=== PATIENT | female | born 1940 | race Caucasian/White ===

== ENCOUNTER → 2018-08-25 12:51 | Outpatient (CLI) | payer MEDICARE, BC, SELFPAY ==
--- NOTE | 2018-08-25 | DI.MRI.S_ITS ---
PROCEDURE: MR LUMBAR SPINE WO CON INDICATIONS: CHRONIC LEFT SIDED LOW BACK PAIN TECHNIQUE: Noncontrast sagittal T1 spin echo and T2 fast echo, sagittal STIR, axial T1 and T2 fast spin echo through the lumbar spine. In cases with scoliosis, additional coronal T2 fast spin echo may be performed. COMPARISON: [facility], CR, XR LUMBAR SPINE 2 OR 3 VIEWS, 08/20/2018, 11:00. FINDINGS: Image quality: Excellent. Alignment and Curvature: 5 lumbar diverticulitis are present by plain film. There is loss of normal lumbar lordosis. There is mild, grade 1 retrolisthesis of T12 on L1, L1 on L2, and L2 on L3. Bone Marrow: Marrow is of normal overall signal. No acute vertebral body compression fractures. There is mild reactive signal within the endplates adjacent to the T12-L1 number L1-L2, L3-L4, L4-L5, and L5-S1 intervertebral discs. Spinal Cord: Conus medullaris terminates at the upper L2 level. Visualized cord demonstrates normal signal and size. Paraspinous Soft Tissues: No paravertebral masses. L1-L2: Moderate disc height loss and desiccation. Mild diffuse disc bulge. Mild bilateral facet and ligamentum flavum hypertrophy. Mild canal stenosis. Mild left foraminal stenosis. No right foraminal stenosis. L2-L3: Mild disc height loss and desiccation. Mild diffuse disc bulge with superimposed broad-based left far lateral protrusion. Mild bilateral facet and ligamentum flavum hypertrophy. Mild epidural lipomatosis. Mild canal stenosis. Moderate left and mild right foraminal stenosis. L3-L4: Severe disc height loss and desiccation. Moderate diffuse disc bulge with superimposed broad-based right far lateral protrusion. Moderate facet and ligamentum flavum hypertrophy. Mild epidural lipomatosis. Severe canal stenosis. Mild foraminal stenosis bilaterally. L4-L5: Severe disc height loss and desiccation. Mild diffuse disc bulge. Mild bilateral facet and ligamentum flavum hypertrophy. Mild epidural lipomatosis. Moderate to severe canal stenosis. Moderate right and mild left foraminal stenosis. L5-S1: Moderate disc height loss and desiccation. Mild diffuse disc bulge. Mild bilateral facet hypertrophy. Mild canal stenosis. Severe bilateral foraminal stenosis with bilateral intraforaminal L5 nerve root flattening. IMPRESSION: 1.Multilevel degenerative disc and facet disease, as well as ligamentum flavum hypertrophy and epidural lipomatosis. 2. Multilevel canal stenoses, worst at L3-L4 and L4-L5 as described above. 3. Multilevel foraminal stenoses, worst at L5-S1 bilaterally, where there is associated intraforaminal L5 nerve root flattening. Recommend correlation with clinical symptoms to ascertain relevance of this finding. Dictated by: Clarisse Thomas M.D. on 08/25/2018 at 13:33 Approved by: Clarisse Thomas M.D. on 08/25/2018 at 13:37
== END ==
PROVIDERS: Family Provider Internal Medicine; PCP Internal Medicine; Visit Provider Orthopaedic Surgery
DX: M54.5 Low back pain (principal); M51.36 Other intervertebral disc degeneration, lumbar region; M51.37 Other intervertebral disc degeneration, lumbosacral region; M48.061 Spinal stenosis, lumbar region without neurogenic claudication; M48.07 Spinal stenosis, lumbosacral region; E88.2 Lipomatosis, not elsewhere classified; G89.29 Other chronic pain
CPT/HCPCS: 72148

== ENCOUNTER 2019-04-13 09:48 | Inpatient (IN) | payer MEDICARE, BC, SELFPAY ==
[2019-03-30 08:16] VITALS: BMI 27.1
[2019-04-13] VITALS (16 sets, daily range): BP systolic 106–174; BP diastolic 45–88; PULSE 55–76; RESP 12–24; TEMP 35.6–36.6; O2SAT 92–100; BMI 27.3
--- NOTE | 2019-04-13 | DI.RAD.S_ITS ---
PROCEDURE: XR LUMBAR SPINE 2-3V INDICATIONS: L4-5 LEFT HEMILAMINECTOMY, L5-S1 TLIF WITH POSTERIOR INSTRU TECHNIQUE: 2 views of the lumbar spine were acquired. COMPARISON: None. FINDINGS: 2 spot fluoroscopic images demonstrating L5-S1 posterior spinal fixation hardware and interbody cage graft. There is expected intraoperative alignment. Dictated by: Raz Bryan M.D. on 04/13/2019 at 15:07 Approved by: Raz Bryan M.D. on 04/13/2019 at 15:08
[2019-04-13] MEDS: LACTATED RINGERS 1,000 ML 42 ML IV ×2 (10:40→13:58)
--- NOTE | 2019-04-13 11:46 | PM.PREOP ---
Pre-operative Note Interval Note History & Physical reviewed/Exam performed by Physician: Yes Changes to H&P: No
[2019-04-13] MEDS: CEFAZOLIN 2 GM/100 ML FROZ.PIGGY IV ×2 (12:05→20:02)
--- NOTE | 2019-04-13 12:36 | SUR.OPER ---
Prone on spine table, head in foam head support, padded chest and pelvic supports, gel pad at knees, lower legs supported by pillows; nipples, genitalia and toes free of pressure, arms secured on foam padded arm boards at <90 degrees abduction. Tape over blanket at thigh secured to table.
[2019-04-13] MEDS: BUPIVACAINE 0.25% W/ EPI 30 ML VIAL INJ (12:39)
[2019-04-13] MEDS: BUPIVACAINE LIPOSOME 266 MG/20 ML VIAL INJ (12:40)
--- NOTE | 2019-04-13 14:43 | PM.OP.1 ---
Operative Date/Time/Diagnoses Date of procedure: 04/13/19 Time of procedure: 12:43 Pre-op diagnosis: 1. L4-5, L5-S1 spinal stenosis 2. L4-5, L5-S1 spondylosis with radiculopathy 3. L5-S1 disc herniation with radiculopathy Post-op diagnosis: same Procedure & Clinicians Procedure: 1. L5-S1 Postero-lateral and posterior interbody fusion 2. L5-S1 interbody cage placement. 3. L5-S1 decompressive laminectomy with bilateral facetecomies 4. L5-S1 Posterior non-segmental instrumentation 5. L4-5 hemilaminectomy 6. [place] of bone marrow from iliac crest 7. Utilization of microsurgical technique and operating microscope Same procedure as scheduled: Yes Indications: Patient has been having chronic back pain and worsening lumbar radiculopathy. Patient failed multiple conservative management with worsening pain weakness and numbness in her lower extremity. Patient has been having difficulty performing activity of daily living. After discussing risks benefits of treatment options, patient elected proceed with surgery. Surgeon: Dallas Lujan Atl[employer]ian Administrator: Angelika Patel Click Yes if Unassisted: No Anesthesia Type: General Operative Notes Closure Type: primary Specimen(s): none sent Prosthetic devices, grafts, tissues, transplants, or devices: Globus revolve, Rise cage Estimated Blood Loss (mL): 50 Blood products transfused: none Procedure in detail: Patient was seen in the preoperative area. Risks and benefits of the surgery was discussed with the patient. Informed consent was obtained from the patient and placed in the chart. Surgical site was marked. Patient was taken to the operative room. General anesthesia was administered. Prophylactic antibiotic was given to the patient less than 30 min before the incision was made. Patient was placed into a prone position on the Misha table. Patient's back was then prepped and draped in the sterile fashion. Time-out was performed at this time. Using AP and lateral C-arm imaging the interval between L4-5 L5-S1 was identified and marked on patient's back. A 2 inch incision 2 in from midline was made on the left side first. The fascia was incised in line with skin incision. Globus MARS retractors was placed inside the incision and docked onto the L5 lamina. Using microsurgical technique and operating microscope, a L5-S1 laminectomy and L5-S1 facetectomy was performed using a Kerrison rongeur. The disc space at L5-S1 was identified. And a total diskectomy was performed at L5-S1 level. The endplates were decorticated using a rasp and shaver. The total diskectomy and decortication was performed at L5-S1 level in order to to accomplish a L5-S1 fusion. The local bone from the laminectomy and facetectomy was saved for local bone grafting. After the total diskectomy and decortication was completed, Bio4 bone graft material was combined with local bone that was harvested earlier. At this time, a separate skin is incision was made over the iliac crest. A Jamshidi needle was inserted into the iliac crest through a separate skin incision. 5 cc of bone marrow aspiration was obtained through the separate skin incision using a Jamshidi needle from the iliac crest. The bone marrow aspiration was combined with local bone and the BIO4 bone grafting material. The bone grafting material was placed into the L5-S1 interbody space along with a expandable cage. The cage was expanded to its maximum height using the torque limiting screwdriver. At this time the MARS retractor was redirected over the L4 lamina. Using microsurgical technique and operating microscope, a L4-5 heminectomy was performed using the Kerrison rongeur. The ligamentum flavum was also resected at the side of the hemilaminectomy for further decompression of the epidural space. At this time a mirror image incision was made on the right side. The fascia was incised in line with the skin incision. Globus MARS retractor was inserted and docked onto the L5-S1 posterolateral gutter. Using the power drill, posterior-lateral decortication was performed at L5-S1 level until bleeding cortical bone was identified. The remaining bone grafting material was placed into the L5-S1 posterior lateral gutter he order to accomplish posterolateral fusion at the L5-S1 level. Using the double C-arm technique, pedicle screws were placed into the L5 and S1 pedicles bilaterally. This was done by placing the Jamshidi needle into the pedicles, then placing the guidewires over the Jamshidi needle, and finally placing the cannulated screws over the guidewires bilaterally. After the pedicle screws were placed, 2 titanium rods was locked into the heads of the pedicle screws using locking caps and torque limiting screwdriver. After all the hardware was placed, and confirmed with AP and lateral C-arm imaging, the wound was then irrigated with sterile normal saline and packed with Ray-Hector gauze for 3 min to accomplish hemostasis. After the gauze was removed the deep fascia was closed with #1 Vicryl suture. The subcutaneous layer was closed with 2-0 Vicryl. The skin was closed with skin maximiliano. Patient tolerated the procedure well. There were no complications. Complications: none Condition: stable Disposition: PACU Plan for aftercare: [facility]
--- NOTE | 2019-04-13 14:48 | P.OP_ITS ---
Operative Date/Time/Diagnoses Date of procedure: 04/13/19 Time of procedure: 12:43 Pre-op diagnosis: 1. L4-5, L5-S1 spinal stenosis 2. L4-5, L5-S1 spondylosis with radiculopathy 3. L5-S1 disc herniation with radiculopathy Post-op diagnosis: same Procedure & Clinicians Procedure: 1. L5-S1 Postero-lateral and posterior interbody fusion 2. L5-S1 interbody cage placement. 3. L5-S1 decompressive laminectomy with bilateral facetecomies 4. L5-S1 Posterior non-segmental instrumentation 5. L4-5 hemilaminectomy 6. [place] of bone marrow from iliac crest 7. Utilization of microsurgical technique and operating microscope Same procedure as scheduled: Yes Indications: Patient has been having chronic back pain and worsening lumbar radiculopathy. Patient failed multiple conservative management with worsening pain weakness and numbness in her lower extremity. Patient has been having difficulty performing activity of daily living. After discussing risks benefits of treatment options, patient elected proceed with surgery. Surgeon: Dallas Lujan Superintendent Maintenance: Angelika Patel Click Yes if Unassisted: No Anesthesia Type: General Operative Notes Closure Type: primary Specimen(s): none sent Prosthetic devices, grafts, tissues, transplants, or devices: Globus revolve, Rise cage Estimated Blood Loss (mL): 50 Blood products transfused: none Procedure in detail: Patient was seen in the preoperative area. Risks and benefits of the surgery was discussed with the patient. Informed consent was obtained from the patient and placed in the chart. Surgical site was marked. Patient was taken to the operative room. General anesthesia was administered. Prophylactic antibiotic was given to the patient less than 30 min before the incision was made. Patient was placed into a prone position on the Misha table. Patient's back was then prepped and draped in the sterile fashion. Time- out was performed at this time. Using AP and lateral C-arm imaging the interval between L4-5 L5-S1 was identified and marked on patient's back. A 2 inch incision 2 in from midline was made on the left side first. The fascia was incised in line with skin incision. Globus MARS retractors was placed inside the incision and docked onto the L5 lamina. Using microsurgical technique and operating microscope, a L5-S1 laminectomy and L5-S1 facetectomy was performed using a Kerrison rongeur. The disc space at L5-S1 was identified. And a total diskectomy was performed at L5- S1 level. The endplates were decorticated using a rasp and shaver. The total diskectomy and decortication was performed at L5-S1 level in order to to accomplish a L5-S1 fusion. The local bone from the laminectomy and facetectomy was saved for local bone grafting. After the total diskectomy and decortication was completed, Bio4 bone graft material was combined with local bone that was harvested earlier. At this time, a separate skin is incision was made over the iliac crest. A Jamshidi needle was inserted into the iliac crest through a separate skin incision. 5 cc of bone marrow aspiration was obtained through the separate skin incision using a Jamshidi needle from the iliac crest. The bone marrow aspiration was combined with local bone and the BIO4 bone grafting mater ial. The bone grafting material was placed into the L5-S1 interbody space along with a expandable cage. The cage was expanded to its maximum height using the torque limiting screwdriver. At this time the MARS retractor was redirected over the L4 lamina. Using microsurgical technique and operating microscope, a L4-5 heminectomy was performed using the Kerrison rongeur. The ligamentum flavum was also resected at the side of the hemilaminectomy for further decompression of the epidural space. At this time a mirror image incision was made on the right side. The fascia was incised in line with the skin incision. Globus MARS retractor was inserted and docked onto the L5-S1 posterolateral gutter. Using the power drill, posterior- lateral decortication was performed at L5-S1 level until bleeding cortical bone was identified. The remaining bone grafting material was placed into the L5-S1 posterior lateral gutter he order to accomplish posterolateral fusion at the L5- S1 level. Using the double C-arm technique, pedicle screws were placed into the L5 and S1 pedicles bilaterally. This was done by placing the Jamshidi needle into the pedicles, then placing the guidewires over the Jamshidi needle, and finally placing the cannulated screws over the guidewires bilaterally. After the pedicle screws were placed, 2 titanium rods was locked into the heads of the pedicle screws using locking caps and torque limiting screwdriver. After all the hardware was placed, and confirmed with AP and lateral C-arm imaging, the wound was then irrigated with sterile normal saline and packed with Ray-Hector gauze for 3 min to accomplish hemostasis. After the gauze was removed the deep fascia was closed with #1 Vicryl suture. The subcutaneous layer was closed with 2-0 Vicryl. The skin was closed with skin maximiliano. Patient tolerated the procedure well. There were no complications. Complications: none Condition: stable Disposition: PACU Plan for aftercare: Admit to inpatient [facility]
[2019-04-13] MEDS: HYDROMORPHONE 2 MG INJ 0.5 MG IV ×4 (14:55→15:10)
[2019-04-13] MEDS: LORazepam 2 MG/ML INJ 1 MG IV (15:00)
[2019-04-13] MEDS: SODIUM CHLORIDE 0.9% 1,000 ML 100 ML IV (17:54)
[2019-04-13] MEDS: OXYCODONE IR 5 MG TABLET 10 MG PO ×2 (20:03→21:45)
[2019-04-13] MEDS: SENNOSIDES 8.6 MG TABLET 17.2 MG PO (21:43)
[2019-04-13] MEDS: METOPROLOL ER 50 MG TABLET PO (21:43)
[2019-04-13] MEDS: DOCUSATE 100 MG CAPSULE PO (21:43)
[2019-04-13] MEDS: ATORVASTATIN 20 MG TABLET PO (21:43)
[2019-04-13] MEDS: METFORMIN HCL 500 MG TABLET PO (21:44)
--- NOTE | 2019-04-13 22:49 | PC.NURSE ---
shift summary- 1630- Pt arrived to room 205 from PACU via bed. Pt awakens easily, remains drowsy, answers questions slowly but good historian. 96% 2L nc, desats to 90 on RA, LS clear, and 2100 using I.S. up to 1800. Low back bulky gauze tegaderm drsg CDI, with tiny spot to upper right of drsg, old serosang drainage. BT+, CMS+, PP+, denies nausea. LAC NS @ 125. provided sand, jello, applesauce, Popsicles, and water, tolerating well. Checked bloos glucose at 1700-144, pt takes oral agents for control. VSS. BSC to void 1PFWW. Bed alarm on.
[2019-04-13] MEDS: HYDROMORPHONE 0.5 MG INJ IV (23:43)
[2019-04-14] VITALS (7 sets, daily range): BP systolic 113–127; BP diastolic 50–60; PULSE 66–89; RESP 14–18; TEMP 36.6–37.8; O2SAT 92–99
--- NOTE | 2019-04-14 00:46 | PC.NURSE ---
Desat. in RA while sleeping to 89%. Oxygen re-applied 1 liter/Nc & sat. 97-98%. Will monitor.
[2019-04-14] MEDS: CEFAZOLIN 2 GM/100 ML FROZ.PIGGY IV (04:06)
[2019-04-14] MEDS: OXYCODONE IR 5 MG TABLET 10 MG PO ×2 (04:06→07:47)
[2019-04-14] MEDS: OXYCODONE IR 5 MG TABLET PO (04:52)
[2019-04-14] MEDS: HYDROMORPHONE 0.5 MG INJ IV (05:33)
[2019-04-14] MEDS: SODIUM CHLORIDE 0.9% 1,000 ML 100 ML IV (05:34)
[2019-04-14] MEDS: DOCUSATE 100 MG CAPSULE PO ×2 (07:46→21:53)
[2019-04-14] MEDS: METFORMIN HCL 500 MG TABLET PO ×2 (07:47→21:53)
[2019-04-14] MEDS: hydroCHLOROthiazide 25 MG TABLET PO (07:47)
[2019-04-14] MEDS: FERROUS SULFATE 325 MG TABLET PO (07:47)
[2019-04-14] MEDS: METOPROLOL ER 50 MG TABLET PO ×2 (07:47→21:52)
[2019-04-14] MEDS: CYANOCOBALAMIN (VITAMIN B-12) 500 MCG TABLET 1000 MCG PO (07:47)
[2019-04-14] MEDS: hydrOXYzine pamoate 25 MG CAPSULE PO ×4 (07:48→23:59)
[2019-04-14] MEDS: LOSARTAN 50 MG TABLET 100 MG PO (07:48)
--- NOTE | 2019-04-14 09:09 | PT.IIE ---
Current Diagnoses Other spondylosis with radiculopathy, lumbosacral region (04/13/19) Spinal stenosis, lumbar region without neurogenic claudication (04/13/19) Surgery Performed Operation Date: 04/13/19 12:15 Actual Procedures p L4-5 Left hemilaminectomy, L5-S1 TLIF with posterior instrumentation(Not Applicable) - Dallas Lujan MD Surgical History (Last Updated 03/30/19 @ 09:24 by Maryse Hughes, RN) History of carpal tunnel surgery of right wrist (Acute) History of rotator cuff surgery (Acute ~2005) History of total right hip arthroplasty (Acute ~2001) Hx of arthroscopy of right knee (Acute) Hx of bilateral cataract extraction (Acute) Hx of heart artery stent (Acute ~2011) Hx of heart artery stent (Acute 11/23/17) Hx of tonsillectomy (Acute) S/P MINISTERIO-BSO (total abdominal hysterectomy and bilateral salpingo-oophorectomy) (Acute) S/P lumpectomy, left breast (Acute ~2001) S/P right unicompartmental knee replacement (Acute ~2015) Medical History (Last Updated 03/30/19 @ 09:16 by Maryse Hughes, RN) Breast cancer, left (Acute) CAD (coronary artery disease) (Acute) CVA (cerebral vascular accident) (Acute ~2011) Diabetes mellitus, type II (Acute) GERD (gastroesophageal reflux disease) (Acute) Gallstones (Acute) Gout (Acute) HTN (hypertension) (Acute) History of revision of total replacement of right hip joint (Acute ~2014) Hypothyroidism (Acute) Macular degeneration of both eyes (Acute ~2018) Myocardial infarction (Acute ~2011) Nephrolithiasis (Acute ~2000) Osteoarthritis (Acute) Osteopenia (Acute) Psoriasis (Acute) RBBB (right bundle branch block) (Acute) Rosacea (Acute) Physical Therapy Inpatient Evaluation/Re-Eval M1 PT/OT-IP Prior Functional Status Start: 04/14/19 12:24 Freq: NEEDED Status: Active Protocol: Document 04/14/19 09:09 AB (Rec: 04/14/19 12:37 AB [id number]) Medical Review Prior Functional Status Medical History Reviewed Yes Communication able to make needs known Mobility and Gait pt stated that she is independent with all mobilities and ambulation without AD Social History Household Members spouse Living Arrangements House Number of Floors (Floors) Two Floors Number of Stairs To Enter/Railing? no steps to enter; has 17 steps with L rail ascending to 2nd level Home Environment High Toilet Walk in Shower Home Equipment Front Wheel Walker Straight Cane Hand Held Shower Grab Bars Near Toilet Grab Bars In Shower Employment Status Retired M2 PT-IP Current Condition Start: 04/14/19 12:24 Freq: NEEDED Status: Active Protocol: Document 04/14/19 09:09 AB (Rec: 04/14/19 12:37 AB [id number]) Physical Therapy Current Condition Current Condition Evaluation Date 04/14/19 Treatment Diagnosis s/p L5S1 fusion/lami; L4-5 hemilami; difficulty inw alking Onset Date 04/13/19 Precautions Lumbar Precautions Log Roll No Twisting Limit Bending Lifting Restriction of 10 lbs Gait Belt above Incisional Area M3 PT-IP Subjective Start: 04/14/19 12:24 Freq: NEEDED Status: Active Protocol: Document 04/14/19 09:09 AB (Rec: 04/14/19 12:37 AB [id number]) Subjective Physical Therapy Visit Type Type Initial Evaluation Visit Start Time 09:09 Visit Stop Time 09:47 Total Visit Minutes 38 Number of PROGRAM/MUSIC DIRECTOR Visits 0 Physical Therapy Visit Comments Patient Comments pt agreeable to do PT Therapy Pain Assessment Pain When Pain Assessed At Rest Pain Present Pain Present Pain Reported Location lower back Intensity 10 Scale Used Numeric (1 - 10) Pain Management Techniques Re-positioning Timing of Activity with Medications M4 PT-IP Mobility and Gait Start: 04/14/19 12:24 Freq: NEEDED Status: Active Protocol: Document 04/14/19 09:09 AB (Rec: 04/14/19 12:37 AB [id number]) PT-Bed Mobility Assessment Rolling Type of Rolling Log Rolling Level of Assist Minimal Assistance 1 Person Assistance Supine to Sit Supine to Sit Minimal Assistance 1 Person Assistance Sit to Supine Sit to Supine Minimal Assistance 1 Person Assistance PT-Transfer Assessment Sit to and From Stand Sit to and from Stand Moderate Assistance 1 Person Assistance Use of Upper Extremities Equipment Transfer Assistive Device Gait Belt Front Wheeled Walker Transfers Transfer Destination Bed Chair Transfer Technique Stand Step Pivot Transfer Ability Level of Assist Moderate Assistance 1 Person Assistance Use of Upper Extremities Comments Mobility Comments pt completed supine to sit min A and max cues for log roll technique. pt was able to sit on EOB SBA. pt completed sit s<>stand x 2 reps requiring mod A and cues. pt requested to go back to bed after ambulation and completed stand pivot transfer bed to chair min A and cues and sit to supine min A and cues. Gait Assessment Gait Gait Assistance Required: Moderate Assistance Distance (Feet) 30 Able to Maintain Weight Bearing Status Yes During Gait Assistive Devices Assistive Device Gait Belt Front Wheeled Walker Orthotic/Prosthetic Devices or Brace: No Gait Deviations General Gait Pattern Antalgic Decreased Stride Length Decreased Feet Clearance Factors Limiting Gait Function Factors Limiting Gait Function Decreased Activity Tolerance Decreased Strength Limited Range of Motion Pain Poor Balance Poor Safety Awareness PT-Balance Assessment Sitting Balance and Reactions Static Sitting Balance Ability Good Dynamic Sitting Balance Ability Good Standing Balance and Reactions Static Standing Balance Ability Fair Dynamic Standing Balance Ability Fair Device Used FWW M5 PT-IP Objective Assessments Start: 04/14/19 12:24 Freq: NEEDED Status: Active Protocol: Document 04/14/19 09:09 AB (Rec: 04/14/19 12:37 AB [id number]) Orientation Orientation/Cognition Level of Alertness Alert Orientation Name Age Birthday Month Date Year Day of Week Place Situation Language Function Ability No Deficits Noted Safety Awareness Understands Safety Issues Memory Description Short Term Impaired Comments pt seems drowsy and dozes on/ off requires cues to keep eyes open Gross Range of Motion Lower Extremity ROM Assessment Within Functional Limits Strength Lower Extremity Strength Assessment Bilaterally Impaired Hip 3+/5 Knee 3+/5 Coordination Assessment Gross Coordination Gross Coordination WNL Sensation Assessment Sensation Gross Sensation WNL Muscle Tone Muscle Tone WNL Yes M6 PT-IP Treatment Start: 04/14/19 12:24 Freq: NEEDED Status: Active Protocol: Document 04/14/19 09:09 AB (Rec: 04/14/19 12:37 AB [id number]) Physical Therapy Treatment Education Education Provided Precautions Weight Bearing Status Post-Op Packet Safety M7 PT-IP Assessment and Plan Start: 04/14/19 12:24 Freq: NEEDED Status: Active Protocol: Document 04/14/19 09:09 AB (Rec: 04/14/19 12:37 AB [id number]) PT Summary Assessment and Plan Potential Rehabilitation Potential Good Status of Condition at Evaluation Stable Summary Impairments Pain ROM Strength Balance Coordination Sensation Tone Cognition Bed Mobility Transfers Gait Activity Tolerance Assessment Summary pt requiring mod A with mobility and will likely improve during hospital stay. will conduct caregiver training when appropraite as well as stair climbing training. will continue to assess. Goals Bed Mobility Goal Standby Assistance Transfer Goal Standby Assistance Front Wheeled Walker Gait Goal Standby Assistance Front Wheel Walker Gait Distance 200 Other Goals up/down 17 steps L rail ascending SBA Days to Meet Goals 5 Frequency of Treatment Frequency Of Treatment Twice a Day Treatment Plan Physical Therapy Treatment Plan Bed Mobility Training Transfer Training Gait Training Therapeutic Exercise Balance Retraining Post Op Education Discharge Planning Hot or Cold Pack Neuromuscular Re-ed Coordination Retraining Manual Therapy Other Recommendations and Next Treatment ambulation, bed mobilty, Focus caregiver training, stair climbing Recommendations To Nursing Amount of Assist Needed 1 Person Assist Discharge Recommendations PT Discharge Recommendations Home with Assistance
--- NOTE | 2019-04-14 10:11 | PM.PNPO.1 ---
Subjective Date Patient Seen: 04/14/19 Time Patient Seen: 10:12 Interval history: Hospital day 2, postop day 1 following L4-5 hemilaminectomy, L5-S1 TLIF with cage and posterior screw fixation by Dr. Lujan. Patient complains of some increased discomfort. Leg symptoms have improved from preop. She has been getting oxycodone 10 mg but having use Dilaudid IV for breakthrough pain. Also notes some sore throat. Has had some itching from medication. She has not had physical therapy yet. Her plan was to go home with helping her. Exam Vital Signs (past 8 hours): - 04/14/19 04:28 04/14/19 08:40 Temperature 98.0 F 97.8 F Pulse Rate 83 70 Respiratory Rate 16 16 Blood Pressure 123/60 125/57 L Pulse Oximetry 99 92 Oxygen Delivery Method Nasal Cannula Oxygen Flow Rate 0 Narrative Exam Narrative: Alert, oriented no acute distress sitting in chair. Back. Dressing to lumbar area has some serosanguineous drainage. Legs. No calf pain or swelling. Pulses symmetrical. Patient able to do full extension bilateral. Good strength on foot dorsiflexion plantar flexion. Good sensation to touch to lower legs. Assessment & Plan Post-op Postoperative Procedures Operation Date: 04/13/19 12:15 Actual Procedures Side Surgeon p L4-5 Left hemilaminectomy, L5-S1 TLIF with posterior instrumentation Not Applicable Dallas Lujan MD Plan: Will change lumbar dressing to CovRsite dressing. Will place patient on Dilaudid for pain. Give septic all for throat soreness. Add Vistaril for itching. Anticipate discharge home tomorrow after cleared by PT and stable. Quality VTE Deep Vein Thrombosis/Pulmonary Embolism Present on Admission: No
--- NOTE | 2019-04-14 11:06 | CM.DANOTE ---
DCP: Case received, EMR reviewed and met with patient. Introduced self and role. Was able to obtain baseline health information from patient. DCP assessment completed with information currently available. Patient is an 78 year old female who admitted yesterday morning to the care of the hospitalist team. PCP: Dr. Velarde. Payer: confirmed: Medicare/[employer] [facility]. Patient came to the hospital for a surgical procedure. She had L4-5 hemilaminectomy, L5-S1 Postero-lateral fusion. Patient has history of lumbar stenosis. Met with patient in her room. She had just seen BRIANNA Stanley. She was sitting up in her chair. She resides in [place] with her , Phill. She feels confident going home. She was using a cane prior to surgery, and independent. P: DCP to continue to follow. Patient will be continuing to work with physical therapy. Patient could possibly discharge home tomorrow. Mariana Garcia RN/Medicare Compliance Auditor
[2019-04-14] MEDS: HYDROMORPHONE 2 MG TABLET PO ×4 (12:54→21:57)
[2019-04-14] MEDS: LEVOTHYROXINE 25 MCG TABLET PO (12:54)
[2019-04-14] MEDS: glipiZIDE 5 MG TABLET 10 MG PO (13:21)
--- NOTE | 2019-04-14 14:55 | PT.IPTN ---
Current Diagnoses Other spondylosis with radiculopathy, lumbosacral region (04/13/19) Spinal stenosis, lumbar region without neurogenic claudication (04/13/19) Surgery Performed Operation Date: 04/13/19 12:15 Actual Procedures p L4-5 Left hemilaminectomy, L5-S1 TLIF with posterior instrumentation(Not Applicable) - Dallas Lujan MD Physical Therapy Treatment Note M2 PT-IP Current Condition Start: 04/14/19 12:24 Freq: NEEDED Status: Active Protocol: Document 04/14/19 09:09 AB (Rec: 04/14/19 12:37 AB [id number]) Physical Therapy Current Condition Current Condition Evaluation Date 04/14/19 Treatment Diagnosis s/p L5S1 fusion/lami; L4-5 hemilami; difficulty inw alking Onset Date 04/13/19 Precautions Lumbar Precautions Log Roll No Twisting Limit Bending Lifting Restriction of 10 lbs Gait Belt above Incisional Area M3 PT-IP Subjective Start: 04/14/19 12:24 Freq: NEEDED Status: Active Protocol: Document 04/14/19 14:55 AB (Rec: 04/14/19 17:11 AB [id number]) Subjective Physical Therapy Visit Type Type Treatment Note Visit Start Time 14:55 Visit Stop Time 15:13 Total Visit Minutes 18 Number of SHELLFISH PROCESSING MACHINE TENDER Visits 0 Physical Therapy Visit Comments Patient Comments pt agreeable to do PT. found pt using bedside commode. Therapy Pain Assessment Pain When Pain Assessed At Rest Pain Present Pain Present Pain Reported Location lower back Intensity 8 Scale Used Numeric (1 - 10) Pain Management Techniques Timing of Activity with Medications M4 PT-IP Mobility and Gait Start: 04/14/19 12:24 Freq: NEEDED Status: Active Protocol: Document 04/14/19 14:55 AB (Rec: 04/14/19 17:11 AB [id number]) PT-Bed Mobility Assessment Sit to Supine Sit to Supine Minimal Assistance 1 Person Assistance PT-Transfer Assessment Sit to and From Stand Sit to and from Stand Minimal Assistance 1 Person Assistance Use of Upper Extremities Equipment Transfer Assistive Device Gait Belt Front Wheeled Walker Orthotic/Prosthetic Devices or Brace: No Comments Mobility Comments pt found using bedside commode . pt completed sit to stand CGA and cues and required min A to maintain standing while pt does her hygiene care. pt ambulated towards the sink and required mod A to maintain standing while doing handwashing. pt agreed to ambulate and requested to go back to bed after ambulation. pt completed sit to supine min A with LE elvation. positioned pt on bed. call light and table placed within reach. Gait Assessment Gait Gait Assistance Required: Contact Guard Assist Minimum Assistance Distance (Feet) 75 Able to Maintain Weight Bearing Status Yes During Gait Assistive Devices Assistive Device Gait Belt Front Wheeled Walker Orthotic/Prosthetic Devices or Brace: No Gait Deviations General Gait Pattern Antalgic Decreased Stride Length Decreased Feet Clearance Step-to Gait Factors Limiting Gait Function Factors Limiting Gait Function Decreased Activity Tolerance Decreased Strength Limited Range of Motion Pain Poor Balance Poor Safety Awareness Comments Gait Comments pt ambulated using FWW 75 ft CGA and cues. pt presents with antalgic step to gait with slow mateo. M5 PT-IP Objective Assessments Start: 04/14/19 12:24 Freq: NEEDED Status: Active Protocol: Document 04/14/19 09:09 AB (Rec: 04/14/19 12:37 AB [id number]) Orientation Orientation/Cognition Level of Alertness Alert Orientation Name Age Birthday Month Date Year Day of Week Place Situation Language Function Ability No Deficits Noted Safety Awareness Understands Safety Issues Memory Description Short Term Impaired Comments pt seems drowsy and dozes on/ off requires cues to keep eyes open Gross Range of Motion Lower Extremity ROM Assessment Within Functional Limits Strength Lower Extremity Strength Assessment Bilaterally Impaired Hip 3+/5 Knee 3+/5 Coordination Assessment Gross Coordination Gross Coordination WNL Sensation Assessment Sensation Gross Sensation WNL Muscle Tone Muscle Tone WNL Yes M6 PT-IP Treatment Start: 04/14/19 12:24 Freq: NEEDED Status: Active Protocol: Document 04/14/19 14:55 AB (Rec: 04/14/19 17:11 AB [id number]) Physical Therapy Treatment Education Education Provided Precautions Safety M7 PT-IP Assessment and Plan Start: 04/14/19 12:24 Freq: NEEDED Status: Active Protocol: Document 04/14/19 14:55 AB (Rec: 04/14/19 17:11 AB [id number]) PT Summary Assessment and Plan Potential Rehabilitation Potential Good Summary Impairments Pain ROM Strength Balance Coordination Sensation Tone Cognition Bed Mobility Transfers Gait Activity Tolerance Progress Towards Goals Slow Progress due to Pain Assessment Summary pt requiring CGA to mod A with mobility. continues to c/o increase pain but able to ambulate using FWW CGA to min A and cues. set up caregiver training tomorrow ~ 930. pt stated that she will call her . d/c plan depending on caregiver training. Goals Bed Mobility Goal Standby Assistance Transfer Goal Standby Assistance Front Wheeled Walker Gait Goal Standby Assistance Front Wheel Walker Gait Distance 200 Other Goals up/down 17 steps L rail ascending SBA Days to Meet Goals 5 Frequency of Treatment Frequency Of Treatment Twice a Day Treatment Plan Physical Therapy Treatment Plan Bed Mobility Training Transfer Training Gait Training Therapeutic Exercise Balance Retraining Post Op Education Discharge Planning Hot or Cold Pack Neuromuscular Re-ed Coordination Retraining Manual Therapy Other Recommendations and Next Treatment ambulation, bed mobilty, Focus caregiver training, stair climbing Recommendations To Nursing Amount of Assist Needed 1 Person Assist Discharge Recommendations PT Discharge Recommendations Home with Assistance
--- NOTE | 2019-04-14 15:17 | OT.IP.EVAL ---
Current Diagnoses Other spondylosis with radiculopathy, lumbosacral region (04/13/19) Spinal stenosis, lumbar region without neurogenic claudication (04/13/19) Surgery Performed Operation Date: 04/13/19 12:15 Actual Procedures p L4-5 Left hemilaminectomy, L5-S1 TLIF with posterior instrumentation(Not Applicable) - Dallas Lujan MD Past Medical History (Last Updated 03/30/19 @ 09:16 by Maryse Hughes, RN) Breast cancer, left (Acute) CAD (coronary artery disease) (Acute) CVA (cerebral vascular accident) (Acute ~2011) Diabetes mellitus, type II (Acute) GERD (gastroesophageal reflux disease) (Acute) Gallstones (Acute) Gout (Acute) HTN (hypertension) (Acute) History of revision of total replacement of right hip joint (Acute ~2014) Hypothyroidism (Acute) Macular degeneration of both eyes (Acute ~2018) Myocardial infarction (Acute ~2011) Nephrolithiasis (Acute ~2000) Osteoarthritis (Acute) Osteopenia (Acute) Psoriasis (Acute) RBBB (right bundle branch block) (Acute) Rosacea (Acute) Surgical History (Last Updated 03/30/19 @ 09:24 by Maryse Hughes, RN) History of carpal tunnel surgery of right wrist (Acute) History of rotator cuff surgery (Acute ~2005) History of total right hip arthroplasty (Acute ~2001) Hx of arthroscopy of right knee (Acute) Hx of bilateral cataract extraction (Acute) Hx of heart artery stent (Acute ~2011) Hx of heart artery stent (Acute 11/23/17) Hx of tonsillectomy (Acute) S/P MINISTERIO-BSO (total abdominal hysterectomy and bilateral salpingo-oophorectomy) (Acute) S/P lumpectomy, left breast (Acute ~2001) S/P right unicompartmental knee replacement (Acute ~2015) Occupational Therapy Inpatient Evaluation/Re-Eval M1 PT/OT-IP Prior Functional Status Start: 04/14/19 14:23 Freq: NEEDED Status: Active Protocol: Document 04/14/19 12:50 [facility] (Rec: 04/14/19 15:17 [facility] [id number]) Medical Review Prior Functional Status Medical History Reviewed Yes Communication able to make needs known Mobility and Gait pt stated that she is independent with all mobilities and ambulation without AD Activities of Daily Living and IADL's 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 Social History Household Members spouse Living Arrangements House Number of Floors (Floors) Two Floors Number of Stairs To Enter/Railing? no steps to enter; has 17 steps with L rail ascending to 2nd level Home Environment High Toilet Walk in Shower Home Equipment Front Wheel Walker Straight Cane Hand Held Shower Grab Bars Near Toilet Grab Bars In Shower Employment Status Retired M2 OT-IP Current Condition Start: 04/14/19 14:23 Freq: Status: Active Protocol: Document 04/14/19 12:50 [facility] (Rec: 04/14/19 15:17 [facility] [id number]) Occupational Therapy Current Condition Current Condition Evaluation Date 04/14/19 Treatment Diagnosis L5-S1 TLIF with cage and post screw fixation, weakness Diagnosis Onset Date 04/13/19 Post Operative Precautions Lumbar Precautions Log Roll No Twisting Limit Bending Lifting Restriction of 10 lbs Gait Belt above Incisional Area Weight Bearing Status Weight Bearing Status Weight Bear as Tolerated M3 OT- IP Subjective and Pain Start: 04/14/19 14:23 Freq: Status: Active Protocol: Document 04/14/19 12:50 [facility] (Rec: 04/14/19 15:17 [facility] [id number]) OT- Subjective Occupational Therapy Visit Type Type Initial Evaluation Visit Start Time 12:50 Visit Stop Time 13:21 Total Visit Minutes 31 Occupational Therapy Visit Comments Patient Comments Pt wanting to use the BSC. Patient/Caregiver Goals To go home. OT Pain Assessment Pain When Pain Assessed At Rest Pain Present Pain Present Pain Reported Location lower back Intensity 7 M4 OT- IP ADL's Start: 04/14/19 14:23 Freq: Status: Active Protocol: Document 04/14/19 12:50 [facility] (Rec: 04/14/19 15:17 [facility] [id number]) OT SLC-Ihcx-Caupexl General Evaluation Self-Feeding Ability Independent OT ADL-Grooming General Evaluation Grooming Ability Standby Assistance Comments OT Grooming Comments Pt needing set-up and vc to bend at hips to spit into a cup. OT ADL-Oral Care General Eval Oral Care Ability Independent OT ADL-Dressing General Eval Lower Body Dressing Ability Maximum Assistance Areas Needing Assistance Underpants/Brief Socks Comments OT Dressing Comments Educated pt on use of superintendent power to assist to help leatha brief on over her feet. In addition educated to attach superintendent power to her FWW for increased access for needs. OT ADL-Toileting General Evaluation Toileting Ability Contact Guard Assistance Comments OT Toileting Comments CGA for balance while pt standing to wipe, educated to hold one hand on the FWW.Educated easier to stand for hygiene needs to prevent for breaking back precautions. OT ADL-Bathing Comments OT Bathing Comments Pt insisting to shower at home versus at hospital. Pt may need shower chair at home, however states has grab bars at home. M5 OT- IP IADL's Start: 04/14/19 14:23 Freq: Status: Active Protocol: Document 04/14/19 12:50 [facility] (Rec: 04/14/19 15:17 [facility] [id number]) OT-Instrumental Activities of Daily Living Home Safety Awareness Home Safety Comments Pt very groggy and not remembering well at this time. Py's to assist for all needs at home. Chair alarm placed. Hand Etcher Hand Etcher Caregiver Provides Assist M6 OT- IP Functional Cognition Start: 04/14/19 14:23 Freq: Status: Active Protocol: Document 04/14/19 12:50 [facility] (Rec: 04/14/19 15:17 [facility] [id number]) Cognitive Factors Limiting Selfcare Function Cognitive Ability Level of Alertness Alert Confusional State Patient Orientation Name Month Date Year Day of Week Place Situation Attention Span Ability Capable of Focused Attention Capable of Sustained Attention Ability to Follow Commands Able to Follow One Step Commands Memory Description Short Term Impaired Safety Awareness Decreased Ability to Apply Precautions Underestimates Need for Assistance Problem Solving Ability Unable to Identify Errors Needs Assist to Identify Solutions Cognitive Comments Cognitive Assessment Comments Per pt states may be groggy from medications. Pt not aware when looking for her cell phone that it was directly in front of her. Pt initially only able to recall 1/3 back precautions. Pt needing cues for hand placement to push up from the bed and armrest of BSC to stand. OT- Vision and Hearing OT- Hearing Assessment OT- Hearing Assessment WFL M7 OT- IP Mobility and Balance Start: 04/14/19 14:23 Freq: Status: Active Protocol: Document 04/14/19 12:50 [facility] (Rec: 04/14/19 15:17 [facility] [email or web address]) OT- Bed Mobility Assessment Supine to Sit Supine to Sit Assist Minimal Assistance Bedrails Scooting Scooting to Edge of Bed Contact Guard Assistance 1 Person Assistance OT-Transfer Assessment Sit to and From Stand Sit to and from Stand Contact Guard Assistance Minimal Assistance Transfers Transfer Ability Minimal Assistance Technique Transfer Destination Bed Bedside Commode Chair Transfer Technique Stand Step Pivot Devices Transfer Assistive Devices Gait Belt Front Wheeled Walker Comments Mobility Comments Pt needing CGA /ELVIA to stand and vc to safety to hinge at hips, lean forwards and straighten her leg and reach for FWW. ELVIA with FWW for steadying while walking to the sink. OT- Balance Assessment Sitting Balance and Reactions Static Sitting Balance Ability Normal Dynamic Sitting Balance Ability Good Standing Balance and Reactions Static Standing Balance Ability Good M8 OT- IP Objective Assessments Start: 04/14/19 14:23 Freq: Status: Active Protocol: Document 04/14/19 12:50 [facility] (Rec: 04/14/19 15:17 [facility] [id number]) OT Gross Range of Motion Upper Extremity Range of Motion Assessment Right Impaired OT Strength Comments Strength Comments Right shoulder has had partial shoulder repair in the past and weaker per pt. OT-Muscle Tone Assessment Muscle Tone WNL Yes M9 OT- IP Assessment and Plan Start: 04/14/19 14:23 Freq: Status: Active Protocol: Document 04/14/19 12:50 [facility] (Rec: 04/14/19 15:17 [facility] [email or web address]) OT Summary Assessment and Plan Potential Rehabilitation Potential Good Analytic Complexity at Evaluation Low Summary OT Impairments Pain Strength Balance Functional Cognition Functional Mobility Dressing Toileting Bathing Toilet Transfers Shower Transfers Progress Towards Goals Progressing Toward Goals Slow Progress due to Cognition Assessment Summary Pt low complexity and main barriers are steps, decreased functional mobility and self care needs and now needing assist. Pt's has a supportive that will assist her at home. Therefore recommend home with pending caregiver training and progress. Goals Grooming Goal Independent Dressing Goal Standby Assistance Toileting Goal Standby Assistance Bathing Goal Minimal Assistance Toilet Transfer Goal Standby Assistance Shower Transfer Goal Contact Guard Assistance Patient/Caregiver Education Goal Caregiver Independent Assisting Patient Days to Meet Goals 2 Frequency of Treatment Frequency Of Treatment Once a Day Treatment Plan OT Treatment Plan ADL Training Functional Cognition Training Functional Mobility Patient/Family Education Discharge Planning Other Treatment Recommendations and Next Incorporation of back Treatment Focus precautions for ADl's, shower if pt agrees, caregiver training. Discharge Recommendations OT Discharge Recommendations Home with Assistance Home Equipment Needs shower chair
[2019-04-14] MEDS: ACETAMINOPHEN 325 MG TABLET 650 MG PO (16:01)
[2019-04-14] MEDS: FLUCONAZOLE 150 MG TABLET PO (16:06)
[2019-04-14] MEDS: HYDROCORTISONE 1% CREAM 28 GM 1 APPLIC TOP (16:35)
[2019-04-14] MEDS: ATORVASTATIN 20 MG TABLET PO (21:52)
[2019-04-14] MEDS: PANTOPRAZOLE 40 MG TABLET PO (21:55)
[2019-04-14] MEDS: SENNOSIDES 8.6 MG TABLET 17.2 MG PO (21:55)
[2019-04-15] MEDS: HYDROMORPHONE 2 MG TABLET PO ×3 (01:20→10:56)
[2019-04-15 01:33] VITALS: BP 127/58; PULSE 80; RESP 16; TEMP 36.8; O2SAT 94
[2019-04-15] MEDS: PANTOPRAZOLE 40 MG TABLET PO (06:02)
[2019-04-15] MEDS: LEVOTHYROXINE 100 MCG TABLET 200 MCG PO (06:02)
[2019-04-15] MEDS: hydrOXYzine pamoate 25 MG CAPSULE PO ×2 (06:05→10:56)
[2019-04-15 06:12] VITALS: BP 140/54; PULSE 87; RESP 16; TEMP 37.1; O2SAT 93
[2019-04-15] MEDS: HYDROCORTISONE 1% CREAM 28 GM 1 APPLIC TOP ×2 (06:27)
[2019-04-15 07:30] VITALS: BP 125/58; PULSE 87; RESP 16; TEMP 36.6; O2SAT 92
[2019-04-15] MEDS: FERROUS SULFATE 325 MG TABLET PO (08:40)
[2019-04-15] MEDS: CYANOCOBALAMIN (VITAMIN B-12) 500 MCG TABLET 1000 MCG PO (08:40)
[2019-04-15] MEDS: LOSARTAN 50 MG TABLET 100 MG PO (08:40)
[2019-04-15] MEDS: METFORMIN HCL 500 MG TABLET PO (08:40)
[2019-04-15] MEDS: DOCUSATE 100 MG CAPSULE PO (08:40)
[2019-04-15] MEDS: glipiZIDE 5 MG TABLET 10 MG PO (08:40)
[2019-04-15] MEDS: hydroCHLOROthiazide 25 MG TABLET PO (08:40)
[2019-04-15] MEDS: METOPROLOL ER 50 MG TABLET PO (08:40)
[2019-04-15] MEDS: SODIUM CHLORIDE 0.9% FLUSH 10 ML IV (08:41)
--- NOTE | 2019-04-15 08:48 | PM.DS.1 ---
History of Present Illness Date Patient Seen: 04/15/19 Time Patient Seen: 08:49 Chief complaint: [id number] Narrative: Please see HPI previously recorded in chart Discharge Providers Date of admission: 04/13/19 09:48 Discharge Date: 04/15/19 Primary care physician: Huong Velarde MD Consults: 03/30/19 09:38 Consult to Anesthesiology Routine Comment: Consulting Provider: Anesthesiologist Reason for consultation: Surgeon requested re: Cardiac History 04/13/19 16:23 Consult to Occupational Therapy Evaluate & Treat Comment: Physician Instructions: Evaluate and treat Consult to Physical Therapy Evaluate & Treat Comment: Physician Instructions: Evaluate and Treat Discharge provider: Yanet Turner PA-C Summary Discharge Diagnosis: s/p L5-S1 TLIF Hospital Course: Patient has been having chronic back pain and worsening lumbar radiculopathy. Patient failed multiple conservative management with worsening pain weakness and numbness in her lower extremity. Patient has been having difficulty performing activity of daily living. After discussing risks benefits of treatment options, patient elected proceed with surgery. After obtaining informed consent patient was taken to the operating room where she underwent L5-S1 TLIF with Dr. Lujan which she tolerated well with no complications. She was then taken to the acute care orr where she has been progressing well post operatively. Initially had some issues with pain control but is doing better after starting PO Dilaudid. Complaining of some itch which has been treated with Vistaril and hydrocortisone cream. She has been mobilizing with PT and remains a one person assist and will have her present as caregiver upon discharge. She is tolerating a diet and voiding. She is medically stable for discharge later today, though recommend caregiver training prior to discharge. Status at Discharge Cognitive/behavioral status at discharge: oriented Functional status at discharge: uses cane/walker Overall status at discharge: patient is progressing back to baseline Exam Vital Signs (past 8 hours): - 04/15/19 01:33 04/15/19 06:12 04/15/19 07:30 Temperature 98.3 F 98.7 F 97.8 F Pulse Rate 80 87 87 Respiratory Rate 16 16 16 Blood Pressure 127/58 L 140/54 L 125/58 L Pulse Oximetry 94 93 92 Oxygen Delivery Method Room Air Oxygen Flow Rate 0 Narrative Exam Narrative: 78 year old female resting comfortably in chair. Alert and oriented in no acute distress. Dressing in place over lumbar spine is CDI. Intact ankle flexion/extension and hip extension with good strength. Sensation intact to light touch. Calves are soft, compressible bilaterally. Discharge Plan Discharge Plan Patient Disposition: Home Discharge comment: Home after caregiver training with PT Discharge Med Rec/Prescriptions Prescriptions: New acetaminophen 325 mg Tablet 650 mg PO Q6HR PRN (Reason: Pain, Mild (1-3)) Qty: 60 RF: 0 hydromorphone 2 mg Tablet 2 mg PO Q4-6H PRN (Reason: Pain, Severe (7-10)) Qty: 60 RF: 0 docusate sodium [DOK] 100 mg Capsule 100 mg PO BID Qty: 60 RF: 0 hydroxyzine pamoate 25 mg Capsule 25 mg PO Q4HR PRN (Reason: Nausea And Vomiting) Qty: 60 RF: 0 Continued metformin 500 mg Tablet 500 mg PO BID RF: 0 atorvastatin 20 mg Tablet 20 mg PO BEDTIME RF: 0 metoprolol succinate 50 mg Tablet Extended Release 24 Hr 50 mg PO BID RF: 0 glipizide 10 mg Tablet 10 mg PO QAM RF: 0 cyanocobalamin (vitamin B-12) [Vitamin B-12] 1,000 mcg Tablet 1,000 mcg PO DAILY RF: 0 levothyroxine 25 mcg Tablet 25 mcg PO Q OTHER DAY RF: 0 losartan-hydrochlorothiazide 100-25 mg Tablet 1 tab PO DAILY RF: 0 glipizide 2.5 mg Tablet Extended Release 24hr 2.5 mg PO QAM RF: 0 ferrous sulfate [Iron (ferrous sulfate)] 325 mg (65 mg iron) Tablet 325 mg PO DAILY RF: 0 lansoprazole [Prevacid] 30 mg Capsule,Delayed Release(Dr/Ec) 30 mg PO BID RF: 0 levothyroxine 200 mcg Tablet 200 mcg PO DAILY RF: 0 eszopiclone [Lunesta] 3 mg Tablet 3 mg PO BEDTIME RF: 0 Discontinued tramadol 50 mg Tablet 50 mg PO Q6H PRN (Reason: Pain) RF: 0 Follow up/Referrals: Huong Velarde MD [Primary Care Provider] - Dallas Lujan MD [Physician] - Provider Discharge Instructions Diet: Diet as Tolerated Activity: no bending, lifting, or twisting Cold/Heat Therapy: Ice packs as needed Skin/Wound/Dressing Care Report to your healthcare provider any signs of infection, such as:: chills, fever, night sweats, unusual drainage and unusual redness Visit Report/Discharge Packet Instructions: DI for Constipation, How to Prevent Falls, DI for Transforaminal Lumbar Interbody Fusion Discharge Data Primary Care Provider: Huong Velarde Attending Provider: Dallas Lujan Admit Date/Time: 04/13/19 09:48 Quality VTE Deep Vein Thrombosis/Pulmonary Embolism Present on Admission: No
--- NOTE | 2019-04-15 09:28 | PT.IPTN ---
Current Diagnoses Other spondylosis with radiculopathy, lumbosacral region (04/13/19) Spinal stenosis, lumbar region without neurogenic claudication (04/13/19) Surgery Performed Operation Date: 04/13/19 12:15 Actual Procedures p L4-5 Left hemilaminectomy, L5-S1 TLIF with posterior instrumentation(Not Applicable) - Dallas Lujan MD Physical Therapy Treatment Note M2 PT-IP Current Condition Start: 04/14/19 12:24 Freq: NEEDED Status: Active Protocol: Document 04/14/19 09:09 AB (Rec: 04/14/19 12:37 AB [id number]) Physical Therapy Current Condition Current Condition Evaluation Date 04/14/19 Treatment Diagnosis s/p L5S1 fusion/lami; L4-5 hemilami; difficulty inw alking Onset Date 04/13/19 Precautions Lumbar Precautions Log Roll No Twisting Limit Bending Lifting Restriction of 10 lbs Gait Belt above Incisional Area M3 PT-IP Subjective Start: 04/14/19 12:24 Freq: NEEDED Status: Active Protocol: Document 04/15/19 09:28 AB (Rec: 04/15/19 11:34 AB [id number]) Subjective Physical Therapy Visit Type Type Treatment Note Visit Start Time 09:28 Visit Stop Time 10:12 Total Visit Minutes 44 Number of SALVAGE REPAIRER Visits 0 Physical Therapy Visit Comments Patient Comments pt agreeable to do PT; spouse present for caregiver training Therapy Pain Assessment Pain When Pain Assessed At Rest Pain Present Pain Present Pain Reported Location lower back Intensity 8 Scale Used Numeric (1 - 10) Pain Management Techniques Timing of Activity with Medications M4 PT-IP Mobility and Gait Start: 04/14/19 12:24 Freq: NEEDED Status: Active Protocol: Document 04/15/19 09:28 AB (Rec: 04/15/19 11:34 AB [id number]) PT-Bed Mobility Assessment Rolling Type of Rolling Log Rolling Level of Assist Contact Guard Assistance Supine to Sit Supine to Sit Moderate Assistance 1 Person Assistance Sit to Supine Sit to Supine Minimal Assistance 1 Person Assistance Scooting Scooting to Edge of Bed Standby Assistance PT-Transfer Assessment Sit to and From Stand Sit to and from Stand Minimal Assistance Moderate Assistance 1 Person Assistance Use of Upper Extremities Equipment Transfer Assistive Device Gait Belt Front Wheeled Walker Orthotic/Prosthetic Devices or Brace: No Transfers Transfer Destination Bed Chair Transfer Technique Stand Step Pivot Transfer Ability Level of Assist Minimal Assistance Moderate Assistance Comments Mobility Comments caregiver training conducted. educated spouse on how to use safety belt and how to assist pt with bed mobility, sit <> stand, transfers and ambulation. pt completed bed mobility log roll technique x 4 reps. pt's spouse initially requiring cues on how to assist pt and on last rep, spouse was able to assist pt with just occasional cues. pt completed sit <>stand x 5 reps. spouse was able to assist pt safety. spouse was also able to assist pt with ambulation using FWW. Gait Assessment Gait Gait Assistance Required: Standby Assistance Contact Guard Assist Distance (Feet) 100 Able to Maintain Weight Bearing Status Yes During Gait Assistive Devices Assistive Device Gait Belt Front Wheeled Walker Orthotic/Prosthetic Devices or Brace: No Gait Deviations General Gait Pattern Antalgic Factors Limiting Gait Function Factors Limiting Gait Function Decreased Activity Tolerance Decreased Strength Pain Poor Balance Poor Safety Awareness M5 PT-IP Objective Assessments Start: 04/14/19 12:24 Freq: NEEDED Status: Active Protocol: Document 04/14/19 09:09 AB (Rec: 04/14/19 12:37 AB [id number]) Orientation Orientation/Cognition Level of Alertness Alert Orientation Name Age Birthday Month Date Year Day of Week Place Situation Language Function Ability No Deficits Noted Safety Awareness Understands Safety Issues Memory Description Short Term Impaired Comments pt seems drowsy and dozes on/ off requires cues to keep eyes open Gross Range of Motion Lower Extremity ROM Assessment Within Functional Limits Strength Lower Extremity Strength Assessment Bilaterally Impaired Hip 3+/5 Knee 3+/5 Coordination Assessment Gross Coordination Gross Coordination WNL Sensation Assessment Sensation Gross Sensation WNL Muscle Tone Muscle Tone WNL Yes M6 PT-IP Treatment Start: 04/14/19 12:24 Freq: NEEDED Status: Active Protocol: Document 04/15/19 09:28 AB (Rec: 04/15/19 11:34 AB [id number]) Physical Therapy Treatment Education Education Provided Precautions Safety M7 PT-IP Assessment and Plan Start: 04/14/19 12:24 Freq: NEEDED Status: Active Protocol: Document 04/15/19 09:28 AB (Rec: 04/15/19 11:34 AB [id number]) PT Summary Assessment and Plan Potential Rehabilitation Potential Good Summary Impairments Pain ROM Strength Balance Coordination Bed Mobility Transfers Gait Activity Tolerance Progress Towards Goals Progressing Toward Goals Assessment Summary caregiver training conducted and spouse was able to assist pt. pt plans to go home today . pt stated that she does not need to do stair and has set up for her to stay on the main level of the house. pt does not want to do stair training. Goals Bed Mobility Goal Standby Assistance Transfer Goal Standby Assistance Front Wheeled Walker Gait Goal Standby Assistance Front Wheel Walker Gait Distance 200 Other Goals up/down 17 steps L rail ascending SBA Days to Meet Goals 5 Frequency of Treatment Frequency Of Treatment Twice a Day Treatment Plan Physical Therapy Treatment Plan Bed Mobility Training Transfer Training Gait Training Therapeutic Exercise Balance Retraining Post Op Education Discharge Planning Hot or Cold Pack Neuromuscular Re-ed Coordination Retraining Manual Therapy Other Recommendations and Next Treatment ambulation, bed mobilty, Focus caregiver training Recommendations To Nursing Amount of Assist Needed 1 Person Assist Discharge Recommendations PT Discharge Recommendations Home with Assistance
--- NOTE | 2019-04-15 11:05 | OT.IP.TRT ---
Current Diagnoses Other spondylosis with radiculopathy, lumbosacral region (04/13/19) Spinal stenosis, lumbar region without neurogenic claudication (04/13/19) Surgery Performed Operation Date: 04/13/19 12:15 Actual Procedures p L4-5 Left hemilaminectomy, L5-S1 TLIF with posterior instrumentation(Not Applicable) - Dallas Lujan MD Occupational Therapy Treatment Note M2 OT-IP Current Condition Start: 04/14/19 14:23 Freq: Status: Active Protocol: Document 04/14/19 12:50 CCC (Rec: 04/14/19 15:17 [facility] [id number]) Occupational Therapy Current Condition Current Condition Evaluation Date 04/14/19 Treatment Diagnosis L5-S1 TLIF with cage and post screw fixation, weakness Diagnosis Onset Date 04/13/19 Post Operative Precautions Lumbar Precautions Log Roll No Twisting Limit Bending Lifting Restriction of 10 lbs Gait Belt above Incisional Area Weight Bearing Status Weight Bearing Status Weight Bear as Tolerated M3 OT- IP Subjective and Pain Start: 04/14/19 14:23 Freq: Status: Active Protocol: Document 04/15/19 10:50 CCC (Rec: 04/15/19 11:05 [facility] [id number]) OT- Subjective Occupational Therapy Visit Type Type Treatment Note Visit Start Time 10:33 Visit Stop Time 10:42 Total Visit Minutes 9 Occupational Therapy Visit Comments Patient Comments Pt's present for caregiver training. Patient/Caregiver Goals To go home today. OT Pain Assessment Pain When Pain Assessed At Rest Pain Present Pain Present Denied Pain M4 OT- IP ADL's Start: 04/14/19 14:23 Freq: Status: Active Protocol: Document 04/15/19 10:50 CCC (Rec: 04/15/19 11:05 [facility] [id number]) OT ADL-Dressing Comments OT Dressing Comments Suggested for recreation programmer to be attached to the FWW, otherwise pt's to assist her with ADL needs. Pt still not recalling all back precautions and also needing increased time to recall back precautions as well. M8 OT- IP Objective Assessments Start: 04/14/19 14:23 Freq: Status: Active Protocol: Document 04/14/19 12:50 CCC (Rec: 04/14/19 15:17 [facility] [id number]) OT Gross Range of Motion Upper Extremity Range of Motion Assessment Right Impaired OT Strength Comments Strength Comments Right shoulder has had partial shoulder reparin in the past and weker per pt. OT-Muscle Tone Assessment Muscle Tone WNL Yes M9 OT- IP Assessment and Plan Start: 04/14/19 14:23 Freq: Status: Active Protocol: Document 04/15/19 10:50 [facility] (Rec: 04/15/19 11:05 [facility] [id number]) OT Summary Assessment and Plan Potential Rehabilitation Potential Good Analytic Complexity at Evaluation Low Summary Assessment Summary Pt going today. Pt's here for caregiver training and states has good understanding to assist pt for all needs. Goals Days to Meet Goals 1 Frequency of Treatment Frequency Of Treatment Once a Day Discharge Recommendations OT Discharge Recommendations Home with Assistance Home Equipment Needs shower chair
--- NOTE | 2019-04-15 12:34 | PC.NURSE ---
Discharge: Pt feels ready to d/c home. Has seen PT/OT and received there final instructions. Has been following her lami precautions. Seems sleepy today and pt thinks this is from not being able to sleep in the hospital and not from her pain medications. Discussed not over doing medications. Pt concerned she would need more pain medication then what was given on her rx. Discussed how law has changed and she will need to contact md office for further refill of narcotics. Tolerates diet. Vds w/out diff. Wants to go home. Discharge instructions reviewed and understood. Rx given. Pt has her belongings. Discussed wound care and extra coversite given until she can obtain more supplies when/if needed. Questions answered. Spouse present at time of teaching. Pt d/c home via auto w/spouse.
--- NOTE | 2019-04-15 14:21 | CM.DPNOTE ---
DCP: continued: Case received, EMR reviewed. Discussed in Team Rounds. PT/OT supports pt's goal for d/c to home setting. A check in later shows that pt ortho team did ok pt for d/c and she left for home in company of at 1230.
== END 2019-04-15 11:40 | disposition home or self-care (01) | DRG 455 ==
PROVIDERS: Admitting Provider Orthopaedic Surgery Orthopaedic Surgery of the Spine; Family Provider Internal Medicine; PCP Internal Medicine; Visit Provider Orthopaedic Surgery Orthopaedic Surgery of the Spine
PROC: 0SG30AJ Fusion of Lumbosacral Joint with Interbody Fusion Device, Posterior Approach, Anterior Column, Open Approach (ICD-10-PCS; principal; 2019-04-13 12:15)
DX: M48.061 Spinal stenosis, lumbar region without neurogenic claudication (principal); M48.07 Spinal stenosis, lumbosacral region; E11.9 Type 2 diabetes mellitus without complications; I45.10 Unspecified right bundle-branch block; I25.10 Atherosclerotic heart disease of native coronary artery without angina pectoris; M47.816 Spondylosis without myelopathy or radiculopathy, lumbar region; I10 Essential (primary) hypertension; E03.9 Hypothyroidism, unspecified; Z87.891 Personal history of nicotine dependence
CPT/HCPCS: 72100; 76000; 82962; 97116; 97161; 97165; 97530; 97535; C1776; C9290; J0330; J0690; J1170; J2060; J2405; J2704; J3010

== ENCOUNTER → 2024-10-26 10:08 | Outpatient (CLI) | payer MEDICARE, BC, SELFPAY ==
[2024-10-10 09:15] VITALS: BMI 27.3
--- NOTE | 2024-10-26 10:10 | DI.NM.S_ITS ---
PROCEDURE: NM LUCY PERF SPECT R&S PHARM Rest and pharmacological stress myocardial perfusion SPECT with gated imaging and ejection fraction RADIOPHARMACEUTICAL: 10.5 mCi Tc-99m tetrafosmin IV at rest and 25.3 mCi Tc-99m tetrafosmin IV at peak effect of pharmacological stress. A [id number] was performed. INDICATIONS: CHST PAIN/ANGINAL EQUIV,PRIOR REVASCULARIZATION TECHNIQUE: Radiopharmaceutical was injected at peak stress test, and also at rest. SPECT images were obtained. SPECT myocardial perfusion images were displayed in short axis, horizontal long axis, and vertical long axis views. Gated images were reviewed using [employer] software. COMPARISON: None. CARDIAC STRESS: A pharmacologic stress test was performed under the supervision of an attending staff, using an infusion of regadenoson 0.4 mg IV. Hemodynamic data: There is normal blood pressure and heart rate response to pharmacologic stress. Symptoms: The patient denied anginal chest pain. EKG: No diagnostic changes of ischemia; no ectopy. FINDINGS: Raw data: There is good myocardial uptake of radiotracer. No significant motion artifacts. Zxwo-[id number] ratio is 0.29 (normal is less than 0.38 for tetrafosmin tracer). Left ventricle function: Gated images demonstrate normal left ventricular wall thickening. No segmental wall motion abnormalities. No transient ischemic dilation; TID is 0.89 (normal less than 1.3). Left ventricle stress end diastolic volume is 66 mL. Left ventricle stress ejection fraction is >75%; normal range is above 45%. Myocardial perfusion: There is normal distribution of activity in the right and left ventricular myocardium. No fixed or reversible perfusion defects. IMPRESSION: Low risk study. No evidence of pharmacologic induced ischemia or scar. Normal LV size with hyperdynamic function. Dictated by: Marie Gutierrez D.O. on 10/26/2024 at 15:53 Approved by: Marie Gutierrez D.O. on 10/26/2024 at 15:55
== END ==
PROVIDERS: Family Provider Internal Medicine; PCP Nurse Practitioner Family; Referring Provider Internal Medicine Cardiovascular Disease; Visit Provider Internal Medicine Cardiovascular Disease
DX: I25.118 Atherosclerotic heart disease of native coronary artery with other forms of angina pectoris (principal)
CPT/HCPCS: 78452; 93017; A9502; J2785